=== PATIENT | female | born 1995 | race Caucasian/White ===

== ENCOUNTER 2021-08-17 20:34 | Emergency (ER) | payer OTHER, SELFPAY ==
[2021-08-17 20:30] VITALS: BP 118/70; PULSE 76; RESP 18; TEMP 36.6; O2SAT 100; BMI 43.5
[2021-08-17 21:23] LABS: Add Manual Diff / Slide Review NO; Basophils Absolute Auto 0 /uL (0-100); Basophils Percent Auto 0.5 % (0-2); Eosinophils Absolute Auto 200 /uL (0-450); Eosinophils Percent Auto 2.1 % (2-4); Hematocrit 40.5 % (36-46); Lymphocytes Absolute Auto 2700 /uL (1100-4500); Lymphocytes Percent Auto 34.2 % (25-40); Mean Corpuscular HGB Conc 34.5 % (30-36); Mean Corpuscular Hemoglobin 30.3 PG (26-34); Mean Corpuscular Volume 87.6 fL (80-100); Monocytes Absolute Auto 500 /uL (0-900); Monocytes Percent Auto 6.3 % (3-14); Neutrophils Absolute Auto 4500 /uL (1500-7000); Neutrophils Percent Auto 56.9 % (50-75); Platelet Count 301 X10^3/uL (150-400); Red Blood Cell Count 4.63 X10^6/uL (4.0-5.2); Red Cell Distribution Width 13.5 % (11.6-14.8); White Blood Cell Count 7.8 X10^3/uL (4.5-11.0)
[2021-08-17 21:41] LABS: Acetaminophen < 10 ug/mL (10-30); Alanine Aminotransferase 18 IU/L (<35); Albumin Globulin Ratio 1.7 (1.0-2.8); Alkaline Phosphatase 50 U/L (38-126); Aspartate Aminotransferase 22 IU/L (14-36); BUN Creatinine Ratio 12.3 (6-22); Bilirubin Total 0.5 mg/dL (0.2-1.3); Blood Urea Nitrogen 10 mg/dL (7-17); Calcium 10.3 mg/dL (8.4-10.2); Carbon Dioxide 31 mmol/L (22-32); Chloride 102 mmol/L (98-107); Estimated Glomerular Filt Rate > 60 mL/min (>60); Ethanol (ETOH) < 10 mg/dL; Glucose 98 mg/dL (70-100); HEMOLYSIS < 15 (0-50); Potassium 4.4 mmol/L (3.4-5.1); Salicylate < 1.0 mg/dL (<20); Sodium 142 mmol/L (137-145)
[2021-08-17 22:16] LABS: UR Morphine/Opiate cutoff 300 Negative (Negative); Ur Creatinine Normal (Normal); Ur Specific Gravity Normal (Normal); Urine Amphetamines Negative (Negative); Urine Barbiturates Negative (Negative); Urine Benzodiazepines Negative (Negative); Urine Cocaine Negative (Negative); Urine MDMA Negative (Negative); Urine Methadone Negative (Negative); Urine Methamphetamines Negative (Negative); Urine Oxycodone Negative (Negative); Urine Phencyclidine Negative (Negative); Urine Tetrahydrocannabinol Negative (Negative); Urine Tricyclic Antidepressant Negative (Negative); Urine pH Normal (Normal)
[2021-08-17 22:37] LABS: Thyroid Stimulating Hormone 1.87 uIU/mL (0.47-4.68)
[2021-08-17 23:03] LABS: Free T4, Direct Thyroxine 1.27 ng/dL (0.78-2.19)
--- NOTE | 2021-08-18 05:49 | ED.PSYCH ---
HPI - Psych <DO Michelle Rivas Last Filed: 08/18/21 18:01> General Chief Complaint: Psychiatric Symptoms Stated Complaint: SI Time Seen by Provider: 08/17/21 21:17 Source: patient Mode of arrival: EMS Limitations: no limitations History of Present Illness HPI Narrative: Patient is a 26-year-old female who is sent to the emergency department from the walk-in clinic for evaluation of suicidal ideation. Patient states she went to the walk-in clinic because she was having some chest discomfort and this caused her to have a panic attack. While she was there she mentioned that she was having thoughts of hurting herself. She has had thoughts like this off and on for the past several years. She states that she would either jump [place] or use carbon monoxide because it would be quick. She states that despite these thoughts and the planned she would never act on them. She does take mental health medications. She does see a mental health provider but states she is currently ?looking for a new one. Patient states she is willing to stay in the emergency department to speak with social work. Related Data Home Medications Medication Instructions Recorded Confirmed atomoxetine 80 mg 08/17/21 lamotrigine 50 mg 08/17/21 Allergies Allergy/AdvReac Type Severity Reaction Status Date / Time No Known Drug Allergies Allergy Verified 08/17/21 21:03 Review of Systems <DO Michelle Rivas Last Filed: 08/18/21 18:01> Constitutional Constitutional: Reports system reviewed and no additional complaints, except as documented Cardiovascular Cardiovascular: Reports system reviewed and no additional complaints, except as documented Respiratory Respiratory: Reports system reviewed and no additional complaints, except as documented Gastrointestinal Gastrointestinal: Reports system reviewed and no additional complaints, except as documented Integumentary/Breasts Skin/Breast: Reports system reviewed and no additional complaints, except as documented Psychiatric Psychiatric: Reports system reviewed and no additional complaints, except as documented Hematologic/Lymphatic On Anticoagulants: No Patient History <DO Michelle Rivas Last Filed: 08/18/21 18:01> Medical History Suicidal ideation Social History Smoking Status: Never smoker Smoking Status: Never smoker alcohol intake frequency: a few times a week Substance Use Type: marijuana Exam <DO Michelle Rivas Filed: 08/18/21 18:01> Initial Vital Signs Initial Vital Signs: Vital Signs Temperature 97.9 F 08/17/21 20:30 Pulse Rate 76 08/17/21 20:30 Respiratory Rate 18 08/17/21 20:30 Blood Pressure 118/70 08/17/21 20:30 Pulse Oximetry 100 08/17/21 20:30 Oxygen Delivery Method 08/17/21 20:30 Const General: comfortable HENMT Head: normal to inspection Resp Effort & Inspection: normal respiratory effort Cardio Rate: regular rate GI Inspection: normal to inspection Skin General: no rashes or lesions noted Neuro General: patient alert, patient awake and moves all extremities Extrem General: normal to inspection Psych Appearance: grossly normal and well kempt Speech and Movement: agitated Mood: dysthymic mood Affect: sad Thought Content: suicidality <Wolf Best DO - Last Filed: 08/19/21 09:09> Initial Vital Signs Initial Vital Signs: Vital Signs Temperature 97.9 F 08/17/21 20:30 Pulse Rate 76 08/17/21 20:30 Respiratory Rate 18 08/17/21 20:30 Blood Pressure 118/70 08/17/21 20:30 Pulse Oximetry 100 08/17/21 20:30 Oxygen Delivery Method 08/17/21 20:30 Course <Jesus Escobar DO - Last Filed: 08/18/21 18:01> Orders Ordered: Discontinued Medications Lamotrigine (Lamotrigine 25 Mg Chew Tablet) 50 mg PO NOW ONE Stop: 08/18/21 11:18 Last Admin: 08/18/21 11:29 Dose: 50 mg Documented By: [facility] Vital Signs Vital signs: Vital Signs - 8 hr 08/18/21 14:33 Pulse Rate 78 Respiratory Rate 19 Blood Pressure 122/68 Pulse Oximetry 100 Oxygen Delivery Method Room Air <Wolf Best DO - Last Filed: 08/19/21 09:09> Orders Ordered: Discontinued Medications Lamotrigine (Lamotrigine 25 Mg Chew Tablet) 50 mg PO NOW ONE Stop: 08/18/21 11:18 Last Admin: 08/18/21 11:29 Dose: 50 mg Documented By: [facility] Vital Signs Vital signs: Vital Signs - 8 hr 08/18/21 14:33 Pulse Rate 78 Respiratory Rate 19 Blood Pressure 122/68 Pulse Oximetry 100 Oxygen Delivery Method Room Air MDM - Psych <Jesus sEcobar DO - Last Filed: 08/18/21 18:01> Lab Data Attestation: I reviewed the patient's lab results. Result diagrams: 08/17/21 21:10 08/17/21 21:10 Labs: Lab Results 08/17/21 08/17/21 08/17/21 Range/Units 21:10 21:10 21:10 WBC 7.8 (4.5-11.0) X10^3/uL RBC 4.63 (4.0-5.2) X10^6/uL Hgb 14.0 (12.0-16.0) g/dL Hct 40.5 (36-46) % MCV 87.6 (80-100) fL MCH 30.3 (26-34) PG MCHC 34.5 (30-36) % RDW 13.5 (11.6-14.8) % Plt Count 301 (150-400) X10^3/uL Neut % (Auto) 56.9 (50-75) % Lymph % (Auto) 34.2 (25-40) % [place] % (Auto) 6.3 (3-14) % Eos % (Auto) 2.1 (2-4) % Baso % (Auto) 0.5 (0-2) % Neut # (Auto) 4500 (7503-0880) /uL Lymph # (Auto) 2700 (2193-9879) /uL [place] # (Auto) 500 (0-900) /uL Eos # (Auto) 200 (0-450) /uL Baso # (Auto) 0 (0-100) /uL Sodium 142 (137-145) mmol/L Potassium 4.4 (3.4-5.1) mmol/L Chloride 102 (98-107) mmol/L Carbon Dioxide 31 (22-32) mmol/L BUN 10 (7-17) mg/dL Creatinine 0.81 (0.52-1.04) mg/dL Estimated GFR > 60 (>60) mL/min BUN/Creatinine Ratio 12.3 (6-22) Glucose 98 (70-100) mg/dL Calcium 10.3 H (8.4-10.2) mg/dL Total Bilirubin 0.5 (0.2-1.3) mg/dL AST 22 (14-36) IU/L ALT 18 (<35) IU/L Alkaline Phosphatase 50 (38-126) U/L Total Protein 8.0 (6.3-8.2) g/dL Albumin 5.0 (3.5-5.0) g/dL Globulin 3.0 (1.7-4.1) g/dL Albumin/Globulin Ratio 1.7 (1.0-2.8) TSH 1.87 (0.47-4.68) uIU/mL Free T4 1.27 (0.78-2.19) ng/dL Salicylates < 1.0 (<20) mg/dL U Opiates 300ng/mL cut (Negative) Ur Oxycodone Screen (Negative) Urine Methadone Screen (Negative) Acetaminophen < 10 (10-30) ug/mL Ur Barbiturates Screen (Negative) U Tricyclic Antidepress (Negative) Ur Phencyclidine Scrn (Negative) Ur Amphetamines Screen (Negative) U Methamphetamines Scrn (Negative) Ur MDMA Scrn (Ecstasy) (Negative) U Benzodiazepines Scrn (Negative) Urine Cocaine Screen (Negative) U Marijuana (THC) Screen (Negative) Ethyl Alcohol < 10 ( - 10) mg/dL 08/17/21 Range/Units 22:10 WBC (4.5-11.0) X10^3/uL RBC (4.0-5.2) X10^6/uL Hgb (12.0-16.0) g/dL Hct (36-46) % MCV (80-100) fL MCH (26-34) PG MCHC (30-36) % RDW (11.6-14.8) % Plt Count (150-400) X10^3/uL Neut % (Auto) (50-75) % Lymph % (Auto) (25-40) % [place] % (Auto) (3-14) % Eos % (Auto) (2-4) % Baso % (Auto) (0-2) % Neut # (Auto) (7920-2263) /uL Lymph # (Auto) (8014-3993) /uL [place] # (Auto) (0-900) /uL Eos # (Auto) (0-450) /uL Baso # (Auto) (0-100) /uL Sodium (137-145) mmol/L Potassium (3.4-5.1) mmol/L Chloride (98-107) mmol/L Carbon Dioxide (22-32) mmol/L BUN (7-17) mg/dL Creatinine (0.52-1.04) mg/dL Estimated GFR (>60) mL/min BUN/Creatinine Ratio (6-22) Glucose (70-100) mg/dL Calcium (8.4-10.2) mg/dL Total Bilirubin (0.2-1.3) mg/dL AST (14-36) IU/L ALT (<35) IU/L Alkaline Phosphatase (38-126) U/L Total Protein (6.3-8.2) g/dL Albumin (3.5-5.0) g/dL Globulin (1.7-4.1) g/dL Albumin/Globulin Ratio (1.0-2.8) TSH (0.47-4.68) uIU/mL Free T4 (0.78-2.19) ng/dL Salicylates (<20) mg/dL U Opiates 300ng/mL cut Negative (Negative) Ur Oxycodone Screen Negative (Negative) Urine Methadone Screen Negative (Negative) Acetaminophen (10-30) ug/mL Ur Barbiturates Screen Negative (Negative) U Tricyclic Antidepress Negative (Negative) Ur Phencyclidine Scrn Negative (Negative) Ur Amphetamines Screen Negative (Negative) U Methamphetamines Scrn Negative (Negative) Ur MDMA Scrn (Ecstasy) Negative (Negative) U Benzodiazepines Scrn Negative (Negative) Urine Cocaine Screen Negative (Negative) U Marijuana (THC) Screen Negative (Negative) Ethyl Alcohol ( - 10) mg/dL Point of Care Testing Test Results Negative Urine Dip Bedside Urine Glucose Negative Bedside Urine Bilirubin - Negative Bedside Urine Ketone - Negative Urine Specific [place] 1.015 Bedside Urine Occult Blood - Negative Bedside Urine pH 6 Bedside Urine Protein - Negative Bedside Urine Urobilinogen - Negative Bedside Urine Nitrite - Negative Bedside Urine Leukocytes - Negative Esterase MDM Narrative Medical decision making narrative: Patient is medically clear. Is here voluntarily. Would benefit from seeing social Work. Care turned over to Dr. Best to follow-up and disposition. <Wolf Best, DO - Last Filed: 08/19/21 09:09> Lab Data Labs: Lab Results 08/17/21 08/17/21 08/17/21 Range/Units 21:10 21:10 21:10 WBC 7.8 (4.5-11.0) X10^3/uL RBC 4.63 (4.0-5.2) X10^6/uL Hgb 14.0 (12.0-16.0) g/dL Hct 40.5 (36-46) % MCV 87.6 (80-100) fL MCH 30.3 (26-34) PG MCHC 34.5 (30-36) % RDW 13.5 (11.6-14.8) % Plt Count 301 (150-400) X10^3/uL Neut % (Auto) 56.9 (50-75) % Lymph % (Auto) 34.2 (25-40) % [place] % (Auto) 6.3 (3-14) % Eos % (Auto) 2.1 (2-4) % Baso % (Auto) 0.5 (0-2) % Neut # (Auto) 4500 (7195-3919) /uL Lymph # (Auto) 2700 (7573-8019) /uL [place] # (Auto) 500 (0-900) /uL Eos # (Auto) 200 (0-450) /uL Baso # (Auto) 0 (0-100) /uL Sodium 142 (137-145) mmol/L Potassium 4.4 (3.4-5.1) mmol/L Chloride 102 (98-107) mmol/L Carbon Dioxide 31 (22-32) mmol/L BUN 10 (7-17) mg/dL Creatinine 0.81 (0.52-1.04) mg/dL Estimated GFR > 60 (>60) mL/min BUN/Creatinine Ratio 12.3 (6-22) Glucose 98 (70-100) mg/dL Calcium 10.3 H (8.4-10.2) mg/dL Total Bilirubin 0.5 (0.2-1.3) mg/dL AST 22 (14-36) IU/L ALT 18 (<35) IU/L Alkaline Phosphatase 50 (38-126) U/L Total Protein 8.0 (6.3-8.2) g/dL Albumin 5.0 (3.5-5.0) g/dL Globulin 3.0 (1.7-4.1) g/dL Albumin/Globulin Ratio 1.7 (1.0-2.8) TSH 1.87 (0.47-4.68) uIU/mL Free T4 1.27 (0.78-2.19) ng/dL Salicylates < 1.0 (<20) mg/dL U Opiates 300ng/mL cut (Negative) Ur Oxycodone Screen (Negative) Urine Methadone Screen (Negative) Acetaminophen < 10 (10-30) ug/mL Ur Barbiturates Screen (Negative) U Tricyclic Antidepress (Negative) Ur Phencyclidine Scrn (Negative) Ur Amphetamines Screen (Negative) U Methamphetamines Scrn (Negative) Ur MDMA Scrn (Ecstasy) (Negative) U Benzodiazepines Scrn (Negative) Urine Cocaine Screen (Negative) U Marijuana (THC) Screen (Negative) Ethyl Alcohol < 10 ( - 10) mg/dL 08/17/21 Range/Units 22:10 WBC (4.5-11.0) X10^3/uL RBC (4.0-5.2) X10^6/uL Hgb (12.0-16.0) g/dL Hct (36-46) % MCV (80-100) fL MCH (26-34) PG MCHC (30-36) % RDW (11.6-14.8) % Plt Count (150-400) X10^3/uL Neut % (Auto) (50-75) % Lymph % (Auto) (25-40) % [place] % (Auto) (3-14) % Eos % (Auto) (2-4) % Baso % (Auto) (0-2) % Neut # (Auto) (9045-6469) /uL Lymph # (Auto) (4468-8803) /uL [place] # (Auto) (0-900) /uL Eos # (Auto) (0-450) /uL Baso # (Auto) (0-100) /uL Sodium (137-145) mmol/L Potassium (3.4-5.1) mmol/L Chloride (98-107) mmol/L Carbon Dioxide (22-32) mmol/L BUN (7-17) mg/dL Creatinine (0.52-1.04) mg/dL Estimated GFR (>60) mL/min BUN/Creatinine Ratio (6-22) Glucose (70-100) mg/dL Calcium (8.4-10.2) mg/dL Total Bilirubin (0.2-1.3) mg/dL AST (14-36) IU/L ALT (<35) IU/L Alkaline Phosphatase (38-126) U/L Total Protein (6.3-8.2) g/dL Albumin (3.5-5.0) g/dL Globulin (1.7-4.1) g/dL Albumin/Globulin Ratio (1.0-2.8) TSH (0.47-4.68) uIU/mL Free T4 (0.78-2.19) ng/dL Salicylates (<20) mg/dL U Opiates 300ng/mL cut Negative (Negative) Ur Oxycodone Screen Negative (Negative) Urine Methadone Screen Negative (Negative) Acetaminophen (10-30) ug/mL Ur Barbiturates Screen Negative (Negative) U Tricyclic Antidepress Negative (Negative) Ur Phencyclidine Scrn Negative (Negative) Ur Amphetamines Screen Negative (Negative) U Methamphetamines Scrn Negative (Negative) Ur MDMA Scrn (Ecstasy) Negative (Negative) U Benzodiazepines Scrn Negative (Negative) Urine Cocaine Screen Negative (Negative) U Marijuana (THC) Screen Negative (Negative) Ethyl Alcohol ( - 10) mg/dL Point of Care Testing Test Results Negative Urine Dip Bedside Urine Glucose Negative Bedside Urine Bilirubin - Negative Bedside Urine Ketone - Negative Urine Specific [place] 1.015 Bedside Urine Occult Blood - Negative Bedside Urine pH 6 Bedside Urine Protein - Negative Bedside Urine Urobilinogen - Negative Bedside Urine Nitrite - Negative Bedside Urine Leukocytes - Negative Esterase MDM Narrative Medical decision making narrative: Patient is medically clear. Is here voluntarily. Would benefit from seeing social Work. Care turned over to Dr. Best to follow-up and disposition. [0700] (Nasir) Patient received in sign out from [Shawn ]. I have reviewed the clinical course and performed an independent history and physical exam. 1400 - she is largely at her baseline and has no feelings or plans that are different than what she routinely experiences. She has been evaluated by MANAGER STUDIO and we share the opinion that she would NOT benefit from inpatient placement. She is able to contract for safety, has a solid support group and is well-versed in crisis options. MANAGER STUDIO as provided multiple resources to pursue as an outpatient. Patient has been given extensive return precautions and has had questions answered to her apparent satisfaction. Discharge Plan Departure Patient Disposition: Home Clinical Impression: Suicidal ideation Instructions: DI for Suicidal Ideation-Adult Activity Restrictions/Additional Instructions: *You have been diagnosed with [depression with suicidal ideation] *What to do: *Please continue to take your regular medications as directed. * you have been given significant amount of literature from social Work, please follow her instructions *Please follow up with your primary care provider in 2-3 days, call for an appointment. Let them know you were seen in the Emergency Department and that we ask that you be seen in follow up. We will electronically transmit a record of today's note if your PCP is in our system *If you do not have a primary care provider please contact the [facility] Resource line at [phone]. They will ask some questions about your medical history and help get you set up with a doctor in the community. *Return to Emergency Department if you should have any new, worsening or concerning symptoms, such as [fever greater than 101 F, shaking chills, worsening pain, persistent vomiting or other bothersome symptoms] *If you feel that you are entering into mental health crisis you have multiple options 1. Return to the ER immediately 2. Call the Crisis Line at [phone] 3. Send an anonymous text by sending the word Alan to [phone] 4. Navigate your web browser to C2[facility] to engage in anonymous chat with a mental health worker Prescriptions: No Action lamotrigine 50 mg atomoxetine 80 mg Referrals: [facility] Crisis [facility] [Outside] Visit Report Forms: Patient Portal/API ED Sign-out <Jesus Escobar, DO - Last Filed: 08/18/21 18:01> [facility]ign [facility]estation: Dr Escobar Co-Sign Statement: I was available for consultation during this patient's emergency department visit. This chart is signed by myself for administrative purposes only. I did not have direct contact with this patient during this visit. They were seen independently by the APC.
--- NOTE | 2021-08-18 08:03 | PC.NURSE ---
patient sleeping, resp even and unlabord
--- NOTE | 2021-08-18 08:34 | PC.NURSE ---
Patient is resting with eyes closed at this time. Bilateral chest rise and fall noted. In no apparent distress.
[2021-08-18] MEDS: lamoTRIgine 25 MG CHEW TABLET 50 MG PO (11:29)
[2021-08-18 14:33] VITALS: BP 122/68; PULSE 78; RESP 19; O2SAT 100
--- NOTE | 2021-08-18 17:44 | CM.SWNOTE ---
IT AUDIT MANAGER Assessment IT AUDIT MANAGER - Mixer Operator Raw Salt Assessment IT AUDIT MANAGER/Mixer Operator Raw Salt Assessment Time Spent with Patient Start date 08/18/21 Visit Start Time 12:05 End date 08/18/21 Visit End Time 13:40 Total time Care Management spent on 1 hour 35 min patient visit-in minutes Mental Health Screening Include Onset, Duration, Intensity Presenting Problem Patient presents to the ED via EMS after informing walk in clinic provider about patient' s SI and plans. Patient presented to walk in clinic due to concern for chest pain and anxiety attack. Patient endorses consistent SI at baseline for the last several years. Precipitating Event(s) Patient endorses that she is here by accident. Patient endorses that she presented at walk in clinic due to concern for anxiety attack and patient was honest about her mental health and was sent to ED via EMS. Patient endorses hx of failed friendships and recent toxic relationship. Patient endorses that she is often misunderstood. Patient endorses that it is difficult to have energy for a full life and wants authentic friendships but it is difficult to maintain connection and often does not get reciprocation of the kind of relationships she would like to have. Patient Strengths Patient shows good insight, endorses good supports. Patient already scheduled a psychiatrist appt and contracted with friends to check in with her on her own. Patient is very goal driven. Current Behavioral Health Provider(s) No current provider. Patient Include Facility, Provider, Ph. # endorses her interest in a good talk therapist. Patient has appt with a psychiatrist for 09/04/21 but she does not recall their name . Psych. Hx Mental Health and Chemical Patient endorses hx of SI, Dependency social anxiety and depression. Patient believes she has a dx of Autism Spectrum Disorder but states she has never been evaluated Family Hx of Behavioral Abuse Patient endorses hx of being misunderstood and corrected by parents. Psychiatric Hospitalizations (date(s)/ No hx location) Psychosocial information & Support Patient is 26 y/o female who Systems resides in [place] by herself. Patient endorses friends as supports. 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 Legal Concerns Legal Matters - Outstanding Issues None reported Mental Status Orientation (Person/Place/Time) A/Ox4 Stated Mood chilling in a dark room Affect (Congruent with Mood?) Flat/euthymic, tearful at times, congruent with mood, full range Thought Content - Specify/Describe Patient endorses she does not Obsessions, Delusions, Hallucinations hear voices but has internal dialogue of demanding voices that say kill yourself. Patient describes one of the voices as a goblin and the other as a 2 yo. Thought Processes (Lddlqje-Uupxshyd-Wlhp coherent, circumstantial Ulbtzwin-Jmqueyyj-Aebavjrwvb- Rovuubzpmvchve-Qgdojsk-Wvbhmobxxfwn- Thought Blocking) Speech (Kwegzl-Rsim-Bawmlme-Rapid-Soft- normal, soft Loud-Pressured) Motor (Ohresi-Mestsvdaz-Aomm-Other) normal Insight (Mtiz-Mcqu-Muzo/Limited) good/fair Judgement (Nnrs-Imqk-Ssio/Limited) good/fair Impulse Control (Adequate-Impaired) adequate Memory (Hkhmpqywm-Evuqwf-Hkhnup, intact Impaired-Intact) Concentration (Intact-Impaired) intact Attention (Intact-Impaired) intact Behavior (Appropriate-Inappropriate) appropriate Additional Comment patient is calm, communicative and cooperative. Risk Assessment Suicidal Ideation (Plan) Yes Homicidal Ideation (Plan) No Comment Patient denies HI. Patient endorses SI for several years. Patient denies current SI but states that it has come and gone throughout ED stay. Patient endorses that she has always thought of ways of what would kill a person and recently wrote down plans to help her get to sleep. In triage, patient described plans to jump off of a bridge or use carbon monoxide. Patient endorses hx of attempts. Patient presents as tearful when stating Other people are the reason I have not killed myself and states I do not want people to experience losing me. Intervention Intervention IT AUDIT MANAGER enters room to meet with patient. Present in room is patient's friend and patient endorses preference to meet privately. Patient endorses hx of SI at baseline and endorses that she is always honest. Patient endorses that she wishes she was not honest about her MH at the walk in clinic. Patient endorses that she wants to meet with a therapist weekly and that she has lined up a psychiatrist appt on 09/04. Patient endorses that the recent anxiety attack was the worst she has ever experienced. Patient endorses that she lives alone and often tries to get together with friends but does not get responses. Patient endorses her SI is often worse when she is at home alone in her thoughts during the weakened when she does not work. Patient endorses she loves her home, her job and where she lives. Patient endorses plans for the future and several ideas for self care. patient identifies several friends to check in with her and permission to check in with them when feeling low. Patient endorses hx of poor relationships and issues with self worth and feeling valued. patient endorses that she would like to gather coping skills in therapy to work on this. Patient endorses that she has used breathing and tapping techniques in the past . It is the opinion of this IT AUDIT MANAGER that patient is safe to d/c to home with friend. Patient contracts for safety and identifies a safety plan. It is the opinion of this IT AUDIT MANAGER that inpatient hospitalization would be more detrimental to patient's MH. Patient denies wanting [facility] crisis line f/u call but agrees to a f/u phone call from IT AUDIT MANAGER on Tuesday. IT AUDIT MANAGER provides patient with list of MH IOP programs, MH providers, local PCPs that accept her insurance and crisis contacts. Patient's friend indicates that she will support patient by checking in with her regularly and helping her establish care with MH therapist. IT AUDIT MANAGER reviews the above with ED provider Dr. Best who indicates agreement and understanding. Plan RA Plan Patient to d/c to home with friend when medically clear. IT AUDIT MANAGER to f/u with patient in a few days. Patient to f/u with psychiatrist on 09/04 and to seek out MH therapist or outpatient program. PIETRO Escobedo
--- NOTE | 2021-08-21 16:28 | CM.SWNOTE ---
CONTINUOUS ABSORPTION PROCESS OPERATOR f/u Note CONTINUOUS ABSORPTION PROCESS OPERATOR calls patient and leaves VM. Patient returns call and leaves VM. Patient states she is doing well and has secured a therapist appt. PIETRO Escobedo
== END 2021-08-18 14:34 | disposition home or self-care (01) ==
PROVIDERS: Emergency Medicine; Emergency Provider Emergency Medicine
DX: R45.851 Suicidal ideations (principal); R07.9 Chest pain, unspecified
CPT/HCPCS: 36415; 80053; 80305; 80320; 80329; 81003; 81025; 84439; 84443; 85025; 99284; G0480